=== PATIENT | male | born 1975 | race Caucasian/White ===

== ENCOUNTER 2023-06-24 20:36 | Inpatient (IN) | payer BC ==
[~2023-06-24 20:36] MED LIST: CALCIUM GLUC 1 GM (50 ML) BAG ONE; Iopamidol 370 76% 100 ML VIAL ONE; NOREPINEPHRINE 8 MG/250 ML-D5W 250 ML ONE
[2023-06-24] MEDS ORDERED: EPINEPHrine 1 MG/10 ML Abboject SYRINGE ONE (21:31)
[2023-06-24] MEDS ORDERED: fentaNYL 50 mcg/mL 1 mL Vial ONE ×2 (21:50→22:38)
[2023-06-24] MEDS ORDERED: TICAGRELOR 90 MG TABLET ONE (21:56)
[2023-06-24] MEDS ORDERED: Tirofiban-0.9% Sodium Chloride 250 ML ONE (22:21)
[2023-06-24] MEDS ORDERED: Midazolam HCl 2 mg/2 ml Vial ONE (22:37)
[2023-06-24 23:52] LABS: #Eosinphils 0.1 thou/uL (0.0-0.7); #Monocytes 0.4 thou/uL (0.11-0.59); #Neutrophils 15.4 thou/uL (1.40-6.50); %Basophils 0.2 % (0.0-1.0); %Eosinophils 0.3 % (0.0-10.0); %Lymphocytes 7.9 % (21.0-51.0); %Monocytes 2.2 % (0.0-10.0); %Neutrophils 88.8 % (42.0-75.0); Hematocrit 41.3 % (42.0-52.0); Hemoglobin 14.2 g/dL (14.0-18.0); Mean Corpuscular HGB CONC 34.4 g/dL (32.0-36.0); Mean Corpuscular Hemoglobin 32.1 pg (27.0-31.0); Mean Corpuscular Volume 93.2 fl (78.0-98.0); Mean Platelet Volume 10.9 fL (7.4-10.4); Platelet Count 226 10x3/uL (130-400); RBC Distribution Width 12.2 % (11.5-14.5); Red Blood Cell (RBC) Count 4.43 mill/uL (4.70-6.10); White Blood Cell (WBC) Count 17.4 10x3/uL (4.8-10.8)
[2023-06-25 00:05] LABS: Prothrombin Time 13.6 sec (12.0-14.7)
[2023-06-25 00:18] LABS: ALT (SGPT) 53 U/L (8-55); AST (SGOT) 130 U/L (5-34); Alkaline Phosphatase 80 U/L (40-110); Anion Gap 17 mmol/L (10-20); BUN (Urea Nitrogen) 15 mg/dL (8.9-20.6); Bilirubin, Total 0.6 mg/dL (0.2-1.2); Calc. Creatinine Clearance 0 mL/min (70-130); Calcium 8.5 mg/dL (7.8-10.44); Carbon Dioxide 18 mmol/L (22-29); Chloride 106 mmol/L (98-107); Estimated GFR 92; Globulin 2.5 g/dL (2.4-3.5); Glucose 156 mg/dL (70-105); Potassium 4.6 mmol/L (3.5-5.1); Protein, Total 6.5 g/dL (6.0-8.3); Sodium 136 mmol/L (136-145)
[2023-06-25 00:28] LABS: Troponin I 11.564 ng/mL (< 0.028)
[2023-06-25 00:30] LABS: PTT 132.4 sec (22.9-36.1)
[2023-06-25 00:33] VITALS: BMI 34.9
[2023-06-25 00:33] LABS: Lipase 157 U/L (8-78)
[2023-06-25 00:45] LABS: Hemoglobin A1c 5.4 % (4.0-6.0)
[2023-06-25] MEDS: Sodium Chloride 0.9% 1,000 ML IV SCH (00:47)
[2023-06-25] MEDS: Calcium Carbonate 500 MG ChewTAB PO PRN (00:47)
[2023-06-25] MEDS: Famotidine 20 MG TAB PO SCH ×2 (00:47→09:11)
[2023-06-25] MEDS: Morphine 2 MG/ML VIAL SLOW IVP PRN (01:21)
[2023-06-25 01:51] LABS: Amphetamine Not Detected (NotDetected); Barbiturates Screen Not Detected (NotDetected); Benzodiazepine Screen Not Detected (NotDetected); Cocaine Metabolite Screen Not Detected (NotDetected); Methadone Not Detected (NotDetected); Methamphetamine Not Detected (NotDetected); Opiate Screen Not Detected (NotDetected); Oxycodone Screen Not Detected (NotDetected); Phencyclidine (PCP) Not Detected (NotDetected); THC/Cannabinoid Screen Not Detected (NotDetected); Tricyclic Screen Not Detected (NotDetected)
[2023-06-25 01:55] LABS: Cardiac Risk 6.5 (Less than 4.5)
[2023-06-25] MEDS: Mag-Al 1200 mg/1200 mg/30 ML UDCUP PO PRN (02:43)
[2023-06-25 04:15] LABS: #Monocytes 0.8 thou/uL (0.11-0.59); %Basophils 0.2 % (0.0-1.0); %Eosinophils 0.1 % (0.0-10.0); %Lymphocytes 9.4 % (21.0-51.0); %Monocytes 5.6 % (0.0-10.0); %Neutrophils 84.4 % (42.0-75.0); Hematocrit 38.7 % (42.0-52.0); Hemoglobin 13.1 g/dL (14.0-18.0); Mean Corpuscular HGB CONC 33.9 g/dL (32.0-36.0); Mean Corpuscular Hemoglobin 31.8 pg (27.0-31.0); Mean Corpuscular Volume 93.9 fl (78.0-98.0); Mean Platelet Volume 11.1 fL (7.4-10.4); Platelet Count 220 10x3/uL (130-400); RBC Distribution Width 12.1 % (11.5-14.5); Red Blood Cell (RBC) Count 4.12 mill/uL (4.70-6.10); White Blood Cell (WBC) Count 14.2 10x3/uL (4.8-10.8)
[2023-06-25 04:40] LABS: ALT (SGPT) 54 U/L (8-55); AST (SGOT) 173 U/L (5-34); Albumin 3.7 g/dL (3.5-5.0); Alkaline Phosphatase 72 U/L (40-110); Anion Gap 13 mmol/L (10-20); BUN (Urea Nitrogen) 14 mg/dL (8.9-20.6); Bilirubin, Total 0.6 mg/dL (0.2-1.2); Calc. Creatinine Clearance 166 mL/min (70-130); Calcium 8.5 mg/dL (7.8-10.44); Carbon Dioxide 19 mmol/L (22-29); Chloride 107 mmol/L (98-107); Estimated GFR 105; Globulin 2.2 g/dL (2.4-3.5); Glucose 122 mg/dL (70-105); Potassium 4.4 mmol/L (3.5-5.1); Protein, Total 5.9 g/dL (6.0-8.3); Sodium 135 mmol/L (136-145)
[2023-06-25] MEDS: Tirofiban-0.9% Sodium Chloride 250 ML IVPB SCH (07:35)
[2023-06-25] MEDS ORDERED: Famotidine/PF 20 mg/2ml Vial SLOW IVP SCH (09:00)
[2023-06-25] MEDS: TICAGRELOR 90 MG TABLET PO SCH (09:11)
[2023-06-25] MEDS: Aspirin Chewable 81 MG TAB PO SCH (09:11)
[2023-06-25] MEDS: Losartan 25 MG TAB PO SCH (09:11)
[2023-06-25 10:49] LABS: Critical Call Chem Troponin I NUR.AG15@1048; Troponin I 53.785 ng/mL (< 0.028)
[2023-06-25 11:52] LABS: Critical Call Chem Troponin I NUR.AG15 @1151; Troponin I 34.094 ng/mL (< 0.028)
[2023-06-25 16:54] LABS: Critical Call Chem Troponin I NUR.AG15 @1654; Troponin I 44.245 ng/mL (< 0.028)
[2023-06-25] MEDS: Atorvastatin Calcium 40 MG TAB PO SCH (20:16)
[2023-06-25] MEDS: FLU VACC QS2023-24(6MOS UP)/PF 60 MCG/0.5 ML SYRINGE IM ONE (20:24)
[2023-06-25] MEDS: Lidocaine 2% Viscous Solution 20 ML, Aluminum & Magnesium Hydroxide 30 ML, Donnatal Eli... SSW SCH (21:12)
[2023-06-26] MEDS: ALPRAZolam 0.25 MG TAB PO PRN (00:34)
[2023-06-26 05:54] LABS: Anion Gap 11 mmol/L (10-20); BUN (Urea Nitrogen) 10 mg/dL (8.9-20.6); Calc. Creatinine Clearance 147 mL/min (70-130); Calcium 8.9 mg/dL (7.8-10.44); Carbon Dioxide 26 mmol/L (22-29); Chloride 105 mmol/L (98-107); Estimated GFR 91; Glucose 111 mg/dL (70-105); Magnesium 2.2 mg/dL (1.6-2.6); Potassium 4.6 mmol/L (3.5-5.1); Sodium 137 mmol/L (136-145)
[2023-06-26 06:15] LABS: #Eosinphils 0.1 thou/uL (0.0-0.7); #Monocytes 0.7 thou/uL (0.11-0.59); #Neutrophils 8.6 thou/uL (1.40-6.50); %Basophils 0.3 % (0.0-1.0); %Eosinophils 0.4 % (0.0-10.0); %Lymphocytes 16.2 % (21.0-51.0); %Neutrophils 76.7 % (42.0-75.0); Hematocrit 36.5 % (42.0-52.0); Mean Corpuscular HGB CONC 32.9 g/dL (32.0-36.0); Mean Corpuscular Hemoglobin 31.7 pg (27.0-31.0); Mean Corpuscular Volume 96.6 fl (78.0-98.0); Mean Platelet Volume 11.2 fL (7.4-10.4); Platelet Count 179 10x3/uL (130-400); RBC Distribution Width 12.5 % (11.5-14.5); Red Blood Cell (RBC) Count 3.78 mill/uL (4.70-6.10); White Blood Cell (WBC) Count 11.2 10x3/uL (4.8-10.8)
[2023-06-26] MEDS: Metoprolol Tartrate 25 MG TAB PO SCH (20:51)
[2023-06-26] MEDS: Acetaminophen 325 MG TAB PO PRN (20:52)
[2023-06-27 04:01] LABS: #Basophils 0.04 10x3/uL (0.0-0.2); %Basophils 0.4 % (0.0-1.0); %Eosinophils 1.2 % (0.0-10.0); %Lymphocytes 21.4 % (21.0-51.0); %Monocytes 7.7 % (0.0-10.0); %Neutrophils 68.9 % (42.0-75.0); Hematocrit 33.9 % (42.0-52.0); Hemoglobin 11.4 g/dL (14.0-18.0); Mean Corpuscular HGB CONC 33.6 g/dL (32.0-36.0); Mean Corpuscular Hemoglobin 31.9 pg (27.0-31.0); Platelet Count 164 10x3/uL (130-400); Red Blood Cell (RBC) Count 3.57 mill/uL (4.70-6.10)
[2023-06-27 05:03] LABS: Anion Gap 11 mmol/L (10-20); BUN (Urea Nitrogen) 13 mg/dL (8.9-20.6); Calc. Creatinine Clearance 161 mL/min (70-130); Calcium 8.4 mg/dL (7.8-10.44); Carbon Dioxide 25 mmol/L (22-29); Chloride 107 mmol/L (98-107); Estimated GFR 101; Glucose 105 mg/dL (70-105); Potassium 4.1 mmol/L (3.5-5.1); Sodium 139 mmol/L (136-145)
[2023-06-27 19:51] VITALS: BP 113/59; TEMP 98.8
== END 2023-06-27 17:29 | disposition home or self-care (01) | DRG 322 ==
LOC: ERS 20:36 → SDC/OP 21:06 → CCU 22:51 → 2NO 06-26 13:32
PROVIDERS: ADMIT Internal Medicine Cardiovascular Disease; ATTEND Internal Medicine
PROC: 027036Z Dilation of Coronary Artery, One Artery with Three Drug-eluting Intraluminal Devices, Percutaneous Approach (ICD-10-PCS; principal; 2023-06-24)
PROC: 4A023N7 Measurement of Cardiac Sampling and Pressure, Left Heart, Percutaneous Approach (ICD-10-PCS; 2023-06-24)
PROC: B2151ZZ Fluoroscopy of Left Heart using Low Osmolar Contrast (ICD-10-PCS; 2023-06-24)
PROC: B2111ZZ Fluoroscopy of Multiple Coronary Arteries using Low Osmolar Contrast (ICD-10-PCS; 2023-06-24)
PROC: 5A1223Z Performance of Cardiac Pacing, Continuous (ICD-10-PCS; 2023-06-24)
PROC: 02HK3JZ Insertion of Pacemaker Lead into Right Ventricle, Percutaneous Approach (ICD-10-PCS; 2023-06-24)
PROC: 3E033XZ Introduction of Vasopressor into Peripheral Vein, Percutaneous Approach (ICD-10-PCS; 2023-06-24)
DX: I21.19 ST elevation (STEMI) myocardial infarction involving other coronary artery of inferior wall (principal); I44.2 Atrioventricular block, complete; I25.10 Atherosclerotic heart disease of native coronary artery without angina pectoris; G47.33 Obstructive sleep apnea (adult) (pediatric); I10 Essential (primary) hypertension; K21.9 Gastro-esophageal reflux disease without esophagitis; E78.5 Hyperlipidemia, unspecified; F41.9 Anxiety disorder, unspecified; F17.210 Nicotine dependence, cigarettes, uncomplicated; F10.90 Alcohol use, unspecified, uncomplicated; I45.10 Unspecified right bundle-branch block; I95.9 Hypotension, unspecified; Z71.6 Tobacco abuse counseling; Z98.890 Other specified postprocedural states; Z95.818 Presence of other cardiac implants and grafts
CPT/HCPCS: 33210; 36415; 36416; 80048; 80053; 80061; 80306; 83036; 83690; 83735; 84484; 85025; 85347; 85610; 85730; 86850; 86900; 86901; 92941; 92978; 93005; 93010; 93458; 93798; 94760; 96365; C1725; C1726; C1751; C1753; C1769; C1874; C1887; C1894; C9606; J0171; J0613; J2250; J2272; J3010; J3246; J7050; Q9967

== ENCOUNTER 2023-08-14 09:59 | Observation (INO) | payer BC ==
[2023-08-14 10:36] LABS: #Basophils 0.05 10x3/uL (0.0-0.2); %Basophils 0.7 % (0.0-1.0); %Eosinophils 2.2 % (0.0-10.0); %Lymphocytes 14.2 % (21.0-51.0); %Monocytes 7.1 % (0.0-10.0); %Neutrophils 75.3 % (42.0-75.0); Hematocrit 42.4 % (42.0-52.0); Hemoglobin 14.6 g/dL (14.0-18.0); Mean Corpuscular HGB CONC 34.4 g/dL (32.0-36.0); Mean Corpuscular Hemoglobin 31.4 pg (27.0-31.0); Mean Corpuscular Volume 91.2 fL (78.0-98.0); Mean Platelet Volume 10.5 fL (7.4-10.4); Platelet Count 197 10x3/uL (130-400); Red Blood Cell (RBC) Count 4.65 mill/uL (4.70-6.10)
[2023-08-14 10:58] LABS: ALT (SGPT) 54 U/L (8-55); AST (SGOT) 23 U/L (5-34); Albumin 4.1 g/dL (3.5-5.0); Alkaline Phosphatase 92 U/L (40-110); Anion Gap 14 mmol/L (10-20); BUN (Urea Nitrogen) 14 mg/dL (8.9-20.6); Bilirubin, Total 0.7 mg/dL (0.2-1.2); Calc. Creatinine Clearance 0 mL/min (70-130); Calcium 9.7 mg/dL (7.8-10.44); Carbon Dioxide 25 mmol/L (22-29); Chloride 104 mmol/L (98-107); Estimated GFR 94; Glucose 134 mg/dL (70-105); Magnesium 2.1 mg/dL (1.6-2.6); Potassium 4.2 mmol/L (3.5-5.1); Protein, Total 7.1 g/dL (6.0-8.3); Sodium 139 mmol/L (136-145)
[2023-08-14 10:58] LABS: Bilirubin Negative (Negative); Blood, Urine Negative (Negative); Glucose, Urine (Dipstick) 100 mg/dL (Negative); Ketone, Urine Negative (Negative); Leukocyte Trace (Negative); Nitrite Negative (Negative); Protein, Urine (Dipstick) Negative (Neg-Trace); Urobilinogen 0.2 mg/dL (Less than 2)
[2023-08-14 11:01] LABS: Bacteria/HPF None Seen HPF (None Seen); CAUTI Indications for Culture Dysuria,urgency,freq; Clarity Hazy (Clear); RBC/HPF 0-3 HPF (0-3); Squamous Epithelial 0-3 HPF (0-3); WBC/HPF 0-3 HPF (0-3)
[2023-08-14 11:02] LABS: Urine Culture Reflex No No
[2023-08-14 11:02] LABS: Troponin I Less than 0.010 ng/mL (< 0.028)
[2023-08-14 14:34] LABS: Troponin I Less than 0.010 ng/mL (< 0.028)
[2023-08-14 15:43] VITALS: BP 131/58; TEMP 98
[2023-08-14 16:04] VITALS: BMI 35.5
[2023-08-14] MEDS: Indomethacin 75 mg SR Capsule PO SCH (17:47)
[2023-08-14] MEDS ORDERED: Atorvastatin Calcium 40 MG TAB PO SCH (21:00)
[2023-08-14] MEDS ORDERED: TICAGRELOR 90 MG TABLET PO SCH (21:00)
[2023-08-14] MEDS ORDERED: Metoprolol Tartrate 25 MG TAB PO SCH (21:00)
[2023-08-15] MEDS ORDERED: Losartan 25 MG TAB PO SCH (09:00)
[2023-08-15] MEDS ORDERED: Aspirin Chewable 81 MG TAB PO SCH (09:00)
[2023-08-15] MEDS ORDERED: Pantoprazole DR 40 MG TAB PO SCH (09:00)
== END 2023-08-14 18:15 | disposition home or self-care (01) ==
LOC: ERS 09:59 → ERHOLD 12:57 → 2SW 15:43
PROVIDERS: ADMIT Internal Medicine; ATTEND Internal Medicine
DX: R07.89 Other chest pain (principal); I10 Essential (primary) hypertension; E78.5 Hyperlipidemia, unspecified; Z87.891 Personal history of nicotine dependence; Z79.82 Long term (current) use of aspirin; Z95.5 Presence of coronary angioplasty implant and graft; Z79.899 Other long term (current) drug therapy
CPT/HCPCS: 36415; 71045; 80053; 81001; 83735; 83880; 84484; 85025; 85379; 93005; G0378

== ENCOUNTER 2025-03-24 13:16 | Outpatient (CLI) | payer BC | END 2025-03-24 13:17 | disposition home or self-care (01) | LOC: BICCT 13:16 | PROVIDERS: ATTEND Student in an Organized Health Care Education/Training Program | DX: Z12.2 Encounter for screening for malignant neoplasm of respiratory organs (principal); Z87.891 Personal history of nicotine dependence | CPT/HCPCS: 71271 ==